=== PATIENT | female | born 1975 ===

== ENCOUNTER 2022-07-12 05:51 | Day surgery (SDC) | payer OTHER ==
[~2022-07-12] VITALS: Ht 157.5 cm; Wt 95.3 kg
== END 2022-07-12 18:30 | disposition home or self-care (01) ==
LOC: CIR.AMB 05:51
PROVIDERS: ATTEND Obstetrics & Gynecology
DX: N93.9 Abnormal uterine and vaginal bleeding, unspecified (principal); N80.03 Adenomyosis of the uterus; Z20.822 Contact with and (suspected) exposure to COVID-19

== ENCOUNTER 2022-09-29 08:15 | Inpatient (IN) | payer OTHER ==
[~2022-09-29] VITALS: Ht 157.5 cm; Wt 94.3 kg
== END 2022-10-07 10:19 | disposition home or self-care (01) | DRG 743 ==
LOC: OB/GYN 10-04 05:40 → O/R 10-04 05:40 → SURH 10-04 08:15 → OB/GYN 10-04 15:38
PROVIDERS: ADMIT Obstetrics & Gynecology; ATTEND Obstetrics & Gynecology
PROC: 0UT90ZZ Resection of Uterus, Open Approach (ICD-10-PCS; principal; 2022-10-04 11:30)
DX: D25.1 Intramural leiomyoma of uterus (principal); Z20.822 Contact with and (suspected) exposure to COVID-19